=== PATIENT | female | born 1950 | race Caucasian/White ===

== ENCOUNTER 2016-10-02 09:44 | Day surgery (SDC) | payer OTHER ==
[2016-10-01 10:53] VITALS: BMI 21.4
[2016-10-02] MEDS ORDERED: PROPOFOL 20 ML ONE ×2 (10:21)
[2016-10-02 11:02] VITALS: TEMP 97.9
[2016-10-02 11:22] VITALS: PULSE 63
[2016-10-02 12:12] VITALS: BP 140/78
--- NOTE | 2016-10-05 13:11 | PATH ---
Surgical Pathology Report Patient Name: AURORA BENITEZ [facility]. Rec. #: [id number] /Age/Gender: 1950 (Age: 65) / F Account: [id number] Location: [facility]-ENDOSCOPY Taken: 10/02/2016 Received: 10/02/2016 Reported: 10/05/2016 Physicians: Palak Bartlett M.D. Specimen(s) Received RECTAL POLYP Clinical History Personal history of polyps, polyps surveillance Rectal polyps Final Diagnosis RECTUM, POLYP, BIOPSY: MULTIPLE FRAGMENTS OF HYPERPLASTIC POLYPS. Electronically Signed Singh Hendrix M.D. Gross Description Received in formalin, labeled "biopsy rectal polyps" are 5 howell, irregular portions of soft tissue ranging from 0.1-0.3 cm in greatest dimension. The specimens are submitted in toto in one cassette. 10/02/201610/02/2016
== END 2016-10-02 11:55 | disposition home or self-care (01) ==
LOC: JASU-ENDO 09:44
PROVIDERS: ATTEND Internal Medicine Gastroenterology
PROC: 0DBP8ZX Excision of Rectum, Via Natural or Artificial Opening Endoscopic, Diagnostic (ICD-10-PCS; principal; 2016-10-02 10:00)
DX: Z86.010 Personal history of colon polyps (principal); K57.30 Diverticulosis of large intestine without perforation or abscess without bleeding; K62.1 Rectal polyp; I10 Essential (primary) hypertension; Z85.3 Personal history of malignant neoplasm of breast; M19.90 Unspecified osteoarthritis, unspecified site; M32.0 Drug-induced systemic lupus erythematosus; M81.0 Age-related osteoporosis without current pathological fracture; G25.81 Restless legs syndrome; R91.1 Solitary pulmonary nodule; B02.29 Other postherpetic nervous system involvement
CPT/HCPCS: 88305-TC

== ENCOUNTER 2018-08-12 11:42 | Day surgery (SDC) | payer OTHER ==
[2018-08-12 12:47] VITALS: BMI 20.5
[2018-08-12 14:18] VITALS: TEMP 97.8
[2018-08-12 15:02] VITALS: BP 155/72; PULSE 66
--- NOTE | 2018-08-17 14:18 | PATH ---
Surgical Pathology Report Patient Name: AURORA BENITEZ [facility]. Rec. #: [id number] /Age/Gender: 1950 (Age: 67) / F Account: [id number] Location: [facility] Taken: 08/12/2018 Received: 08/15/2018 Reported: 08/17/2018 Physicians: Palak Bartlett M.D. Specimen(s) Received A: 2ND PORTION DUODENUM AND BULB B: ANTRUM C: DISTAL AND MID ESOPHAGUS Clinical History Hoarseness, acid reflux. Post-operative diagnosis: Erosive gastritis and bile reflux Final Diagnosis A. SECOND PORTION DUODENUM AND BULB, BIOPSY: MILD CHRONIC DUODENITIS WITH ALONSO GLAND HYPERPLASIA. B. ANTRUM, BIOPSY: MILD CHRONIC GASTRITIS WITH FOCAL INTESTINAL METAPLASIA. IMMUNOSTAIN IS NEGATIVE FOR H. PYLORI ORGANISMS. C. DISTAL AND MID ESOPHAGUS, BIOPSY: HYPERPLASTIC ESOPHAGEAL (SQUAMOUS) MUCOSA WITH INCREASE IN INTRAEPITHELIAL LYMPHOCYTES AND RARE EOSINOPHILS, CONSISTENT WITH REFLUX ESOPHAGITIS. NO COLUMNAR EPITHELIUM/INTESTINAL METAPLASIA IS IDENTIFIED. Electronically Signed Frances Beck M.D. Gross Description A. Received in formalin, labeled, "second portion and bulb of duodenum" are three pieces of howell tissue ranging from 0.3-0.4 cm in greatest dimension. Entirely submitted in one cassette. B. Received in formalin, labeled, "antrum" are two pieces of howell tissue, each other 0.3 cm in greatest dimension. Entirely submitted in one cassette. C. Received in formalin, labeled, "distal and mid esophagus" are four pieces of howell tissue ranging from 0.2-0.4 cm in greatest dimension. Entirely submitted in one cassette. AE/08/15/2018 ebram/08/15/2018
== END 2018-08-12 15:05 | disposition home or self-care (01) ==
LOC: JASU-ENDO 11:42
PROVIDERS: ATTEND Internal Medicine Gastroenterology
PROC: 0DB68ZX Excision of Stomach, Via Natural or Artificial Opening Endoscopic, Diagnostic (ICD-10-PCS; 2018-08-12)
PROC: 0DB28ZX Excision of Middle Esophagus, Via Natural or Artificial Opening Endoscopic, Diagnostic (ICD-10-PCS; 2018-08-12)
PROC: 0DB38ZX Excision of Lower Esophagus, Via Natural or Artificial Opening Endoscopic, Diagnostic (ICD-10-PCS; principal; 2018-08-12 12:30)
DX: R49.0 Dysphonia (principal); K21.9 Gastro-esophageal reflux disease without esophagitis; K29.70 Gastritis, unspecified, without bleeding
CPT/HCPCS: 88305-TC; 88342-TC

== ENCOUNTER 2020-01-05 05:31 | Day surgery (SDC) | payer OTHER ==
[2020-01-02 16:53] VITALS: BMI 19.5
[2020-01-05 12:41] VITALS: TEMP 97.8
[2020-01-05 13:50] VITALS: BP 148/72; PULSE 68
--- NOTE | 2020-01-08 15:59 | PATH ---
Surgical Pathology Report Patient Name: AURORA BENITEZ [facility]. Rec. #: [id number] /Age/Gender: 1950 (Age: 69) / F Account: [id number] Location: [facility]-ENDOSCOPY Taken: 01/05/2020 Received: 01/05/2020 Reported: 01/08/2020 Physicians: Palak Bartlett M.D. Specimen(s) Received A: RIGHT COLON POLYPS B: RECTAL POLYP Clinical History Recent upper GI bleed, screening Postoperative diagnosis: Hiatal hernia, colon polyps, angiodysplasia of cecum and sigmoid Final Diagnosis A. RIGHT COLON POLYPS, POLYPECTOMY: TUBULAR ADENOMA, ONE FRAGMENT. SEPARATE POLYPOID FRAGMENTS OF COLONIC MUCOSA WITH NO SIGNIFICANT PATHOLOGIC CHANGE. B. RECTAL POLYP, BIOPSY: POLYPOID COLONIC MUCOSA WITH FOCAL SURFACE HYPERPLASTIC CHANGE. Electronically Signed Kelin Scherer M.D. Gross Description A. Received in formalin, labeled "biopsy right colon polyps" are 2 howell, irregular portions of soft tissue measuring 0.3 and 0.5 cm. in greatest dimension. The specimens are submitted in toto in one cassette. B. Received in formalin, labeled "biopsy rectal polyp" are 2 howell, irregular portions of soft tissue averaging 0.3 cm. in greatest dimension. The specimens are submitted in toto in one cassette. 01/05/2020 saudi01/05/2020
== END 2020-01-05 12:45 | disposition home or self-care (01) ==
LOC: JASU-ENDO 05:31
PROVIDERS: ATTEND Internal Medicine Gastroenterology
PROC: 0DBF8ZX Excision of Right Large Intestine, Via Natural or Artificial Opening Endoscopic, Diagnostic (ICD-10-PCS; 2020-01-05)
PROC: 0DBN8ZX Excision of Sigmoid Colon, Via Natural or Artificial Opening Endoscopic, Diagnostic (ICD-10-PCS; 2020-01-05)
PROC: 0DJ08ZZ Inspection of Upper Intestinal Tract, Via Natural or Artificial Opening Endoscopic (ICD-10-PCS; principal; 2020-01-05 11:00)
DX: Z12.11 Encounter for screening for malignant neoplasm of colon (principal); K92.1 Melena; D12.5 Benign neoplasm of sigmoid colon; K55.20 Angiodysplasia of colon without hemorrhage; K57.30 Diverticulosis of large intestine without perforation or abscess without bleeding; I10 Essential (primary) hypertension; E11.9 Type 2 diabetes mellitus without complications; J44.9 Chronic obstructive pulmonary disease, unspecified
CPT/HCPCS: 88305-TC

== ENCOUNTER 2020-09-25 05:17 | Day surgery (SDC) | payer OTHER ==
[2020-09-24 12:26] VITALS: BMI 20.5
[2020-09-25] MEDS ORDERED: BUPIVACAINE HCL 50 ML ONE (07:39)
[2020-09-25] MEDS ORDERED: LIDOCAINE HCL 1%, 10 MG/ML (20ML VIAL) ONE (07:39)
[2020-09-25] MEDS ORDERED: SEVOFLURANE 250 ML BTL ONE (07:52)
[2020-09-25] MEDS ORDERED: PROPOFOL 20 ML ONE (07:53)
[2020-09-25] MEDS ORDERED: MIDAZOLAM HCL 2 MG/2 ML SINGLE DOSE VIAL ONE (07:53)
[2020-09-25] MEDS ORDERED: ceFAZolin SODIUM 1 GM VIAL ONE (08:21)
[2020-09-25] MEDS ORDERED: DEXAMETHASONE SOD PHOSPHATE 4 MG/1 ML VIAL ONE (08:21)
[2020-09-25] MEDS ORDERED: LIDOCAINE HCL/PF 2% SDV 5ML VIAL ONE (08:21)
[2020-09-25] MEDS ORDERED: LIDOCAINE HCL 1%, 10 MG/ML (20ML VIAL) INF ONE ×2 (08:30)
[2020-09-25] MEDS ORDERED: BUPIVACAINE HCL/PF 0.5% (5MG/ML) 10 ML VIAL IJ ONE ×2 (08:30)
[2020-09-25] MEDS ORDERED: oxyCODONE HCL 5 MG TABLET PO PRN ×2 (09:32)
[2020-09-25] MEDS ORDERED: ONDANSETRON 4 MG/2 ML VIAL IVPUSH PRN (09:32)
[2020-09-25] MEDS ORDERED: LACTATED RINGERS SOLUTION 1,000 ML IV SCH (09:45)
[2020-09-25 11:46] VITALS: BP 112/63; PULSE 76; TEMP 97.1
== END 2020-09-25 11:35 | disposition home or self-care (01) ==
LOC: JASU-SURG 05:17
PROVIDERS: ATTEND Orthopaedic Surgery
PROC: 0LQ40ZZ Repair Left Upper Arm Tendon, Open Approach (ICD-10-PCS; 2020-09-25)
PROC: 0PBG0ZZ Excision of Left Humeral Shaft, Open Approach (ICD-10-PCS; 2020-09-25)
PROC: 0PBG0ZZ Excision of Left Humeral Shaft, Open Approach (ICD-10-PCS; principal; 2020-09-25 08:02)
DX: M77.12 Lateral epicondylitis, left elbow (principal); S46.811A Strain of other muscles, fascia and tendons at shoulder and upper arm level, right arm, initial encounter; X58.XXXA Exposure to other specified factors, initial encounter; Y93.9 Activity, unspecified; Y92.9 Unspecified place or not applicable; Y99.9 Unspecified external cause status
CPT/HCPCS: 94760